=== PATIENT | female | born 1930 | race Caucasian/White ===

== ENCOUNTER → 2017-04-08 | Outpatient (CLI) | payer MEDICARE ==
[~2017-04-08] MED LIST: AMLO2.5T PO; CALTTAB5 PO; CHOL1CAP6 PO; DIGO0.12 PO; LATA.005%O RIGHT EYE; PARO12.5CR PO; POTA-243 PO; TAB-TAB PO; TRUS2SOL RIGHT EYE; VITA100017 PO; WARF5TAB PO; WARF7.5T4 PO
--- NOTE | 2017-04-08 11:25 | RADRPT ---
EXAM DATE/TIME: 04/08/2017 00:00 [place] COMPARISON: No previous studies available for comparison. INDICATIONS : Dysphagia, coughing after swallowing, some food gets stuck in throat FLUORO TIME: 1.1 minutes IMAGE COUNT: CONTRAST: Dose as prescribed by speech pathologist. MEDICAL HISTORY : None. SURGICAL HISTORY : None. ENCOUNTER: Initial ACUITY: 1 month PAIN SCORE: 0/10 LOCATION: Bilateral esophagus FINDINGS: A modified barium swallow was performed with speech pathology. Patient was given a variety of liquids to swallow. For a full detailed report, see report by the speech pathologist. CONCLUSION: Normal examination. Adolfo Villagomez MD on April 08, 2017 at 11:23 Board Certified Radiologist. This report was verified electronically.
== END ==
LOC: HRAD 10:50
PROVIDERS: ATTEND Internal Medicine Gastroenterology
DX: R13.10 Dysphagia, unspecified (principal)
CPT/HCPCS: 74230; 92611; G8996; G8997; G8998